=== PATIENT | male | born 2000 | race Two or more races ===

== ENCOUNTER 2024-07-08 09:42 | Emergency (ER) | payer OTHER ==
[~2024-07-08] VITALS: Ht 182.9 cm; Wt 134.7 kg
[2024-07-08] MEDS: IBUPROFEN 600 MG TABLET PO ONE (11:02)
[2024-07-08] MEDS ORDERED: IBUPROFEN 600 MG TABLET ONE (11:03)
[2024-07-08] MEDS ORDERED: IBUP-1957 PO (11:19)
[2024-07-08 11:53] VITALS: BP 145/66; TEMP 98.4; O2SAT 99
== END 2024-07-08 11:53 | disposition home or self-care (01) ==
LOC: ER 09:45
DX: M25.512 Pain in left shoulder (principal); R07.89 Other chest pain; V89.2XXA Person injured in unspecified motor-vehicle accident, traffic, initial encounter; Y93.89 Activity, other specified; Y92.410 Unspecified street and highway as the place of occurrence of the external cause; Y99.8 Other external cause status
CPT/HCPCS: 71045-TC; 73030-TC